=== PATIENT | female | born 1980 | race Asian ===

== ENCOUNTER 2025-01-05 00:42 | Emergency (ER) | payer BC ==
[~2025-01-05] VITALS: Ht 160 cm; Wt 53.8 kg
[2025-01-05 00:47] VITALS: BP 160/83; PULSE 75; RESP 16; TEMP 99.5; O2SAT 98
--- NOTE | 2025-01-05 00:59 | Physician Documentation ---
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 The patient is requesting a COVID test. Patient states she has pain occipital headache that she has had for two days she describes it as moderate in intensity and pressure-like. The patient denies any fevers chills nausea or vomiting. She denies any cough she is concerned that she might have COVID she has a child at home and she is requesting a COVID test. The patient was offered medication for headache she does not want any medication for headache. Medication Reconciliation Allergies: Coded Allergies: ibuprofen (Verified Allergy, Unknown, 01/05/25) Past Medical History Past Medical History: No Pertinent History Review of Systems All Other Systems at this time: Reviewed and Negative Physical Exam Physical Exam Vital Signs: Temperature: 99.5, Source: Oral, Heart Rate: 75, Respiratory Rate: 16, BP: 160/83, Pulse Oximetry: 98, Weight: 53.800 Physical Exam VITALS: Reviewed and as above. GENERAL: Alert, no apparent distress. HEENT: Normocephalic, atraumatic, PERRL, EOMI, dry mucosa, no erythema RESPIRATORY: Lungs clear, normal breath sounds, no respiratory distress. CHEST: No accessory muscle use, no retractions CV: Regular rate, rhythm, no edema, no murmur, No: JVD BACK: No CVA tenderness, or swelling MUSCULOSKELETAL: No deformities, no edema SKIN: Warm and dry, no rash NEURO: Oriented x4, No motor or sensory deficit PSYCH: Normal mood and affect, no agitation Progress Results/Orders Results/Orders Orders - OHLXOCHILT NICK MD Covid19 Binax Poc Result Entry (01/05/25 00:55) Vital Signs 01/05/25 00:47 Temp 99.5 Pulse 75 Resp 16 B/P (MAP) 160/83 Pulse Ox 98 Laboratory Tests Test 01/05/25 00:55 SARS-CoV-2 Antigen (Rapid) Negative Medical Decision Making Findings The patient is well-appearing in no distress lungs are clear she has a benign exam pulse oximetry was interpreted as adequate normal the patient was requesting a COVID test she she will receive COVID test. Departure Time of Disposition: 02:28 Disposition: 01 HOME / SELF CARE / HOMELESS Impression: Primary Impression: Headache Qualified Codes: R51.9 - Headache, unspecified Discharge Instructions: General Headache Without Cause, [id number] Referrals: NO PRIMARY CARE PROVIDER (PCP) Signature Scribe Signature: no scribe Attestation: The note accurately reflects work and decisions made by me.Xochilt Sofia MD 01/05/25 04:54 XOCHILT SOFIA MD Jan 05, 2025 00:59
== END 2025-01-05 02:32 | disposition home or self-care (01) ==
LOC: ER 00:43
DX: R51.9 Headache, unspecified (principal); Z20.822 Contact with and (suspected) exposure to COVID-19; Z88.6 Allergy status to analgesic agent
CPT/HCPCS: 36415; 87811; 99283